=== PATIENT | male | born 1970 | race African-American/Black ===

== ENCOUNTER 2020-11-18 11:18 | Emergency (ER) | payer BC, OTHER ==
[~2020-11-18] VITALS: Ht 177.8 cm; Wt 127.0 kg
[2020-11-18] MEDS ORDERED: cloNIDine HCL 0.1 MG TAB PO ONE (11:45)
[2020-11-18] MEDS ORDERED: ACETAMINOPHEN 325 MG TAB PO ONE (12:00)
[2020-11-18 12:34] VITALS: BP 178/98
== END 2020-11-18 13:35 ==
LOC: ER 11:18
DX: S86.911A Strain of unspecified muscle(s) and tendon(s) at lower leg level, right leg, initial encounter (principal); S46.911A Strain of unspecified muscle, fascia and tendon at shoulder and upper arm level, right arm, initial encounter; I16.0 Hypertensive urgency; E11.9 Type 2 diabetes mellitus without complications; I10 Essential (primary) hypertension; X58.XXXA Exposure to other specified factors, initial encounter; Y93.89 Activity, other specified; Y92.89 Other specified places as the place of occurrence of the external cause; Y99.8 Other external cause status
CPT/HCPCS: 73030; 73562